=== PATIENT | female | born 1975 | race Caucasian/White ===

== ENCOUNTER 2016-11-18 02:19 | Inpatient (IN) | payer MEDICAID, OTHER ==
[~2016-11-18] VITALS: Ht 154.9 cm; Wt 96.6 kg
[~2016-11-18 02:19] MED LIST: FLUO10CA65 PO
--- NOTE | 2016-11-18 02:25 | NUR ---
Patient to ER bed 8 to gown for evaluation. Side rails up. Report given to CLARA RUSHING.
--- NOTE | 2016-11-18 02:28 | NUR ---
Pt brought in by in stable condition. Pt c/o abd pain 10/ that radiated to her back bilaterally. Pt actively vomiting in room. Pt stated that she has been having diarrhea x3 days. Pt stated that she took 1 mg of Ativan at 2200 but has been ineffective for pain and anxiety. Pt admitted to drinking 2 beers earlier in the evening. -sob -chest pain. no acute distress noted at this time, will continue to monitor
[2016-11-18 02:29] VITALS: BP 151/94; PULSE 100; RESP 18; TEMP 99.8; O2SAT 98
[2016-11-18] MEDS ORDERED: NACL 0.9% 1,000 ML IV ONE ×2 (02:33→08:15)
--- NOTE | 2016-11-18 02:43 | NUR ---
ER at bedside examining patient.
[2016-11-18] MEDS ORDERED: MAG HYDROX/AL HYDROX/SIMETH 30 ML, BELLADONNA ALKALOIDS/PHENOBARB 10 ML, LIDOCAINE VISC... PO ONE ×3 (02:45)
[2016-11-18] MEDS ORDERED: ONDANSETRON HCL 4 MG/2 ML VIAL IVP ONE (02:45)
[2016-11-18] MEDS ORDERED: KETOROLAC TROMETHAMINE 30 MG VIAL IVP ONE ×2 (02:45→04:00)
[2016-11-18 03:21] LABS: BASOPHILS % (AUTO) 0.5 % (0.0-2.0); EOSINOPHILS # (AUTO) 0.1 K/uL (0.0-0.4); EOSINOPHILS % (AUTO) 1.8 % (0.0-4.0); HEMATOCRIT 35.5 % (36-48); HEMOGLOBIN 11.8 g/dL (12.0-16.0); LYMPHOCYTES # (AUTO) 1.6 K/uL (1.0-5.5); LYMPHOCYTES % (AUTO) 20.2 % (20.5-51.5); MEAN CORPUSCULAR HEMOGLOBIN 31 pg (27-31); MEAN CORPUSCULAR HGB CONC 33 % (32-36); MEAN CORPUSCULAR VOLUME 95 fL (79.0-98.0); MONOCYTES # (AUTO) 0.4 K/uL (0.0-1.0); MONOCYTES % (AUTO) 5.3 % (1.7-9.3); NEUTROPHILS # (AUTO) 5.7 K/uL (1.8-7.7); NEUTROPHILS % (AUTO) 72.2 % (40.0-70.0); PLATELET COUNT (AUTO) 284 K/uL (130-430); RED BLOOD CELL COUNT(AUTO) 3.75 MIL/uL (4.2-6.2); RED CELL DISTRIBUTION WIDTH 14.7 % (9.0-15.0); WHITE BLOOD COUNT (AUTO) 7.8 K/uL (4.8-10.8)
[2016-11-18 03:29] LABS: BILIRUBIN,URINE 1+ (NEGATIVE); BLOOD, URINE NEGATIVE (NEGATIVE); CLARITY/URINE CLEAR (CLEAR); COLOR,URINE YELLOW (YELLOW); GLUCOSE,URINE NEGATIVE (NEGATIVE); KETONES,URINE TRACE (NEGATIVE); LEUKOCYTE ESTERASE ,URINE NEGATIVE (NEGATIVE); NITRITE, URINE NEGATIVE (NEGATIVE); PROTEIN URINE NEGATIVE (NEGATIVE)
[2016-11-18 03:30] LABS: INR 1.1 (0.8-1.2); PROTHROMBIN TIME 12.1 SECS (9.5-12.5)
[2016-11-18 03:34] LABS: CALCIUM 9.2 mg/dL (8.4-11.0); CREATININE 0.62 mg/dL (0.55-1.30); POTASSIUM 3.5 mmol/L (3.5-5.1)
[2016-11-18 03:38] LABS: ALBUMIN 3.6 g/dL (3.4-4.8); TOTAL BILIRUBIN 2.3 mg/dL (0.0-1.0); TOTAL PROTEIN, SERUM 8.1 g/dL (6.4-8.3)
[2016-11-18] MEDS ORDERED: LACTULOSE 20 GM/30 ML UDC PO ONE (04:00)
--- NOTE | 2016-11-18 04:23 | NUR ---
Pt taken to CT via jenni
[2016-11-18] MEDS ORDERED: fentaNYL CITRATE/PF 100 MCG/2 ML AMP IVP ONE (04:30)
[2016-11-18] MEDS ORDERED: LORazepam 2 MG/ML VIAL (FOR ER USE) IVP ONE (04:30)
--- NOTE | 2016-11-18 04:34 | NUR ---
Pt back from CT. Pt tolerated procedure well.
--- NOTE | 2016-11-18 04:35 | NUR ---
Endorsed pt to CLARA Ba.
--- NOTE | 2016-11-18 04:45 | NUR ---
Pt came in for 10/10 abd pain. Pt was medicated and now is resting comfortably at a 4/10. Denies N and V. Vitals WNL. Will continue to monitor via fire prevention research engineer. No distress noted.
--- NOTE | 2016-11-18 06:35 | NUR ---
Patient will be admitted to care of Dr. Caro. Admitted to Med Surg unit. Will go to room 100A. Summary report printed. Report given to admitting RN.
[2016-11-18 06:36] VITALS: BP 118/70; PULSE 102; RESP 18; TEMP 97.4; O2SAT 96
--- NOTE | 2016-11-18 06:36 | NUR ---
Admission assessment: RECEIVE PT FROM ER VIA STAN, PT AWAKE, ALERT AND ORIENTED X4, SENIES ANY DISTRESS, BREATHING EVEN AND NON LABORED WITH ROOM AIR, CHEST CLEAR, VITAL STABLE, DIAGNOSIS OF PANCREATITIS, ABDOMEN SOFT AND TENDER TO TOUCH, IV ON LEFT AC 20 G, INFUSING NS, NO INFILTRATION, PLAN OF CARE DISCUSSED WITH PT, CALL LIGHT WITH IN REACH, WILL CONTINUE TO MONITOR.
[2016-11-18 06:46] VITALS: BP 118/70; PULSE 102; RESP 18; TEMP 97.4; O2SAT 96
--- NOTE | 2016-11-18 07:30 | NUR ---
AM ROUNDS Pt A/Ox4, Denies N/V/D or pain at this time..HL to RAC flushes well..Pt aware of NPO status and Abdominal ultrasound..Pt ambulates ad hoang with steady gait...Call light/phone w/in reach...Will cont to monitor
--- NOTE | 2016-11-18 07:44 | NUR ---
GI CONSULT Spoke with Glory regarding request for consultation with Dr. Allen ([phone]) for reason: pancreatitis
[2016-11-18] MEDS ORDERED: ONDANSETRON HCL 4 MG/2 ML VIAL IVP PRN (08:00)
[2016-11-18] MEDS ORDERED: MORPHINE 4 MG/ML INJ. SYRINGE IVP PRN (08:00)
[2016-11-18] MEDS ORDERED: MORPHINE 2 MG/ML INJ. SYRINGE IVP PRN (08:00)
[2016-11-18] MEDS: FLUoxetine HCL 10 MG CAPSULE (PROzac) PO SCH (09:00)
[2016-11-18] MEDS ORDERED: PANTOPRAZOLE SODIUM 40 MG/VIAL (PROTONIX) IVP ONE (09:15)
[2016-11-18] MEDS: D5NS 1,000 ML IV SCH ×2 (09:55→18:00)
[2016-11-18 09:56] LABS: HEMATOCRIT 32.3 % (36-48); HEMOGLOBIN 10.5 g/dL (12.0-16.0)
--- NOTE | 2016-11-18 11:00 | NUR ---
ROUNDS PT STABLE...DENIES PAIN OR DISCOMFORT AT THIS TIME..PT AWAITING GI CONSULT... AT BEDSIDE...WILL CONT TO MONITOR
[2016-11-18 12:00] VITALS: BP 134/79; PULSE 82; RESP 21; TEMP 98; O2SAT 97
--- NOTE | 2016-11-18 14:00 | NUR ---
PT AMBULATED TO MAIN LOBBY TO VISIT W/FAMILY PT STABLE
[2016-11-18 16:00] VITALS: BP 123/88; PULSE 71; RESP 19; TEMP 98.1; O2SAT 98
--- NOTE | 2016-11-18 17:02 | NUR ---
ROUNDS PT STABLE...DENIES PAIN...PT HUNGRY. AWAITING GI CONSULT... AT BEDSIDE...WILL CONT TO MONITOR
[2016-11-18 17:24] LABS: HEMATOCRIT 30.1 % (36-48)
--- NOTE | 2016-11-18 18:18 | NUR ---
DR VALENZUELA AT BEDSIDE
--- NOTE | 2016-11-18 19:50 | NUR ---
Start of shift notes Received pt.in bed, pt.alert, awake, oriented x4. Denies abdominal pain this time. No nausea and vomiting. With IVF infusing well to R AC. Made comfortable in bed.
[2016-11-18 20:00] VITALS: BP 121/76; PULSE 81; RESP 18; TEMP 98.6; O2SAT 98
[2016-11-18] MEDS: PANTOPRAZOLE SODIUM 40 MG/VIAL (PROTONIX) IVP SCH (21:33)
--- NOTE | 2016-11-18 21:45 | NUR ---
Nurse rounds Pt.denies pain. Pt.signed MRCP consent. MRCP checklist completed by pt.
[2016-11-19 00:02] VITALS: BP 146/89; PULSE 81; RESP 17; TEMP 99.2; O2SAT 98
--- NOTE | 2016-11-19 00:15 | NUR ---
Nurse rounds Pt.seemed comfortable in bed. Denies pain.
[2016-11-19 01:16] LABS: HEMATOCRIT 30.2 % (36-48); HEMOGLOBIN 9.9 g/dL (12.0-16.0)
--- NOTE | 2016-11-19 02:10 | NUR ---
Nurse rounds Pt.asleep.
[2016-11-19] MEDS: D5NS 1,000 ML IV SCH (04:00)
[2016-11-19 04:18] VITALS: BP 142/86; PULSE 82; RESP 16; TEMP 99; O2SAT 98
--- NOTE | 2016-11-19 06:15 | NUR ---
End of shift Notes Pt.asleep. Denies pain, no nausea and vomiting.
--- NOTE | 2016-11-19 08:00 | NUR ---
Patient A/Ox4. No signs of distress noted at this time. IV on right AC, #20, infused with NS 100ml/hr, intact and patent. Patient is ambulatory. Call light in place, bed at lowest position, will continue to monitor.
[2016-11-19 08:02] LABS: BASOPHILS % (AUTO) 0.5 % (0.0-2.0); EOSINOPHILS # (AUTO) 0.2 K/uL (0.0-0.4); EOSINOPHILS % (AUTO) 3.2 % (0.0-4.0); HEMATOCRIT 30.6 % (36-48); HEMOGLOBIN 10.1 g/dL (12.0-16.0); LYMPHOCYTES # (AUTO) 1.5 K/uL (1.0-5.5); MEAN CORPUSCULAR HEMOGLOBIN 32 pg (27-31); MEAN CORPUSCULAR HGB CONC 33 % (32-36); MEAN CORPUSCULAR VOLUME 96 fL (79.0-98.0); MONOCYTES # (AUTO) 0.4 K/uL (0.0-1.0); MONOCYTES % (AUTO) 5.7 % (1.7-9.3); NEUTROPHILS # (AUTO) 4.7 K/uL (1.8-7.7); NEUTROPHILS % (AUTO) 68.6 % (40.0-70.0); PLATELET COUNT (AUTO) 212 K/uL (130-430); RED CELL DISTRIBUTION WIDTH 15.1 % (9.0-15.0); WHITE BLOOD COUNT (AUTO) 6.8 K/uL (4.8-10.8)
[2016-11-19 08:15] LABS: CREATININE 0.67 mg/dL (0.55-1.30); POTASSIUM 3.3 mmol/L (3.5-5.1); TOTAL BILIRUBIN 2.6 mg/dL (0.0-1.0); TOTAL PROTEIN, SERUM 6.9 g/dL (6.4-8.3)
[2016-11-19] MEDS: FLUoxetine HCL 10 MG CAPSULE (PROzac) PO SCH (09:00)
--- NOTE | 2016-11-19 09:14 | NUR ---
Nutrition Update Misael Scale 18 noted. Pt admitted for pancreatitis. Diet: clear liquid BMI: 40.4 kg/m2 RD to follow per nutrition care standards.
[2016-11-19] MEDS: PANTOPRAZOLE SODIUM 40 MG/VIAL (PROTONIX) IVP SCH (09:54)
--- NOTE | 2016-11-19 11:03 | NUR ---
Patient is at rest, no signs of distress noted. Will continue to monitor.
[2016-11-19] MEDS ORDERED: LORazepam 2 MG/ML VIAL IVP ONE (11:30)
--- NOTE | 2016-11-19 11:40 | NUR ---
Patient to MRCP. No signs of distress noted during transport.
[2016-11-19 11:41] VITALS: BP 139/87; PULSE 77; RESP 16; TEMP 97.6; O2SAT 98
--- NOTE | 2016-11-19 13:10 | NUR ---
Patient has returned from [facility]. V/S is stable, no signs of distress noted during her return.
--- NOTE | 2016-11-19 15:38 | NUR ---
Patient is resting, no signs of distress noted.
[2016-11-19 16:06] VITALS: Ht 154.9 cm; Wt 96.6 kg
[2016-11-19 16:39] VITALS: BP 132/92; PULSE 81; RESP 16; TEMP 97.9; O2SAT 97
[2016-11-19 17:28] LABS: HEMATOCRIT 30.3 % (36-48); HEMOGLOBIN 9.9 g/dL (12.0-16.0)
--- NOTE | 2016-11-19 18:05 | NUR ---
Patient is tolerating full liquid dinner without c/o abdominal, n/v nor diarrhea.
--- NOTE | 2016-11-19 20:00 | NUR ---
PT SIGNED AND LEFT HOME.NO C/O PAIN AND NO SOB NOTED DURING D/C.V/S ARE WNL.ALL BELONGINGS WAS WITH PT WHO WAS ACCOMPANIED BY AND LADY FRIEND.DR MATTHEWS IS AWARE Addendum: 11/19/16 at 2230 by Nixon Self RN ADDITIONAL:SIGNED ELISA
== END 2016-11-19 19:45 | disposition left against medical advice (07) | DRG 282 ==
LOC: SED 02:19 → SMU 06:06
PROVIDERS: ADMIT Internal Medicine Hospice and Palliative Medicine; ATTEND Internal Medicine Hospice and Palliative Medicine
DX: K85.90 Acute pancreatitis without necrosis or infection, unspecified (principal); K92.0 Hematemesis; K76.0 Fatty (change of) liver, not elsewhere classified; K92.2 Gastrointestinal hemorrhage, unspecified; Z68.41 Body mass index [BMI] 40.0-44.9, adult; Z53.21 Procedure and treatment not carried out due to patient leaving prior to being seen by health care provider; I10 Essential (primary) hypertension; E66.9 Obesity, unspecified; Z79.899 Other long term (current) drug therapy
CPT/HCPCS: 36415; 74181; 76700-TC; 80053; 81003; 81025; 82787; 83690-TC; 84478-TC; 85018-TC; 85025; 85610-TC; 86038; 93005; 96374; 96375; 99285; C9113; G0482; J1885; J2001; J2060; J2405; J3010; J7030; J7042

== ENCOUNTER 2017-07-16 13:00 | Inpatient (IN) | payer MEDICAID ==
[~2017-07-16] VITALS: Ht 157.5 cm; Wt 86.2 kg
[2017-07-16 13:09] VITALS: BP_SYST 139
[2017-07-16 13:50] LABS: BASOPHILS # (AUTO) 0.2 K/uL (0.0-0.2); BASOPHILS % (AUTO) 1.8 % (0.0-2.0); EOSINOPHILS # (AUTO) 0.2 K/uL (0.0-0.4); EOSINOPHILS % (AUTO) 1.5 % (0.0-4.0); HEMATOCRIT 32.3 % (36-48); HEMOGLOBIN 10.6 g/dL (12.0-16.0); LYMPHOCYTES % (AUTO) 15.6 % (20.5-51.5); MEAN CORPUSCULAR HEMOGLOBIN 34 pg (27-31); MEAN CORPUSCULAR HGB CONC 33 % (32-36); MEAN CORPUSCULAR VOLUME 104 fL (79.0-98.0); MONOCYTES # (AUTO) 0.5 K/uL (0.0-1.0); MONOCYTES % (AUTO) 3.8 % (1.7-9.3); NEUTROPHILS # (AUTO) 9.6 K/uL (1.8-7.7); NEUTROPHILS % (AUTO) 77.3 % (40.0-70.0); PLATELET COUNT (AUTO) 443 K/uL (130-430); RED BLOOD CELL COUNT(AUTO) 3.12 MIL/uL (4.2-6.2); RED CELL DISTRIBUTION WIDTH 20.5 % (9.0-15.0); WHITE BLOOD COUNT (AUTO) 12.5 K/uL (4.8-10.8)
[2017-07-16] MEDS ORDERED: PRO40 PO (13:55)
[2017-07-16 14:12] LABS: CALCIUM 9.5 mg/dL (8.4-11.0); CREATININE 0.74 mg/dL (0.55-1.30); POTASSIUM 3.5 mmol/L (3.5-5.1)
[2017-07-16] MEDS ORDERED: HYDROmorphone 1 MG INJ. 1 MG/ML AMPUL IVP ONE (14:15)
[2017-07-16 14:19] LABS: ALBUMIN 2.9 g/dL (3.4-4.8); TOTAL BILIRUBIN 3.8 mg/dL (0.0-1.0)
[2017-07-16] MEDS: ONDANSETRON HCL 4 MG/2 ML VIAL IVP ONE ×2 (14:36→15:19)
[2017-07-16 14:40] LABS: INR 1.4 (0.8-1.2); PROTHROMBIN TIME 14.1 SECS (9.5-12.5)
[2017-07-16] MEDS ORDERED: NACL 0.9% 1,000 ML IV ONE (15:30)
[2017-07-16] MEDS ORDERED: MORPHINE 4 MG/ML INJ. SYRINGE IVP PRN (16:00)
[2017-07-16] MEDS ORDERED: ONDANSETRON HCL 4 MG/2 ML VIAL IVP PRN (16:00)
[2017-07-16] MEDS: FOLIC ACID 1 MG, THIAMINE HCL 100 MG, MAGNESIUM SULFATE 1 GM, MVI 10 ML in NACL 0.9% 1,... IV SCH (16:56)
[2017-07-16 20:00] VITALS: BP_SYST 115
[2017-07-16] MEDS ORDERED: MORPHINE 2 MG/ML INJ. SYRINGE IVP PRN (20:15)
[2017-07-16] MEDS ORDERED: LORazepam 2 MG/ML VIAL IVP PRN (20:45)
[2017-07-16] MEDS ORDERED: PHYTONADIONE 5 MG TABLET PO ONE (21:00)
[2017-07-16] MEDS ORDERED: TEMAZEPAM 15 MG CAPSULE PO PRN (21:45)
[2017-07-16] MEDS: FAMOTIDINE PF 20 MG/2 ML VIAL IVP SCH (23:53)
[2017-07-17 00:31] VITALS: BP_SYST 122
[2017-07-17 03:22] LABS: HEMATOCRIT 27.6 % (36-48); MEAN CORPUSCULAR HEMOGLOBIN 34 pg (27-31); MEAN CORPUSCULAR HGB CONC 33 % (32-36); MEAN CORPUSCULAR VOLUME 104 fL (79.0-98.0); PLATELET COUNT (AUTO) 356 K/uL (130-430); RED BLOOD CELL COUNT(AUTO) 2.65 MIL/uL (4.2-6.2); RED CELL DISTRIBUTION WIDTH 19.6 % (9.0-15.0); WHITE BLOOD COUNT (AUTO) 11.8 K/uL (4.8-10.8)
[2017-07-17 03:23] LABS: BASOPHILS # (AUTO) 0.1 K/uL (0.0-0.2); BASOPHILS % (AUTO) 1.1 % (0.0-2.0); EOSINOPHILS # (AUTO) 0.2 K/uL (0.0-0.4); EOSINOPHILS % (AUTO) 1.3 % (0.0-4.0); LYMPHOCYTES # (AUTO) 1.8 K/uL (1.0-5.5); MONOCYTES # (AUTO) 0.6 K/uL (0.0-1.0); MONOCYTES % (AUTO) 4.8 % (1.7-9.3); NEUTROPHILS # (AUTO) 9.1 K/uL (1.8-7.7); NEUTROPHILS % (AUTO) 77.8 % (40.0-70.0)
[2017-07-17 03:26] LABS: INR 1.5 (0.8-1.2); PROTHROMBIN TIME 15.2 SECS (9.5-12.5)
[2017-07-17 03:32] LABS: ALBUMIN 2.4 g/dL (3.4-4.8); CALCIUM 8.3 mg/dL (8.4-11.0); CREATININE 0.59 mg/dL (0.55-1.30); POTASSIUM 3.5 mmol/L (3.5-5.1); TOTAL BILIRUBIN 3.9 mg/dL (0.0-1.0)
[2017-07-17 04:33] VITALS: BP_SYST 127
[2017-07-17] MEDS ORDERED: PHYTONADIONE 10 MG/ML AMP PO ONE (07:30)
[2017-07-17 08:05] VITALS: BP_SYST 128
[2017-07-17] MEDS: FOLIC ACID 1 MG TABLET PO SCH (09:48)
[2017-07-17] MEDS: PANTOPRAZOLE SODIUM 40 MG TAB PO SCH (09:48)
[2017-07-17] MEDS: FAMOTIDINE PF 20 MG/2 ML VIAL IVP SCH ×2 (09:56→21:13)
[2017-07-17 12:17] VITALS: BP_SYST 116
[2017-07-17 16:51] VITALS: BP_SYST 122
[2017-07-17] MEDS: FOLIC ACID 1 MG, THIAMINE HCL 100 MG, MAGNESIUM SULFATE 1 GM, MVI 10 ML in NACL 0.9% 1,... IV SCH (16:51)
[2017-07-17 19:12] VITALS: BP_SYST 109
[2017-07-18 00:41] VITALS: BP_SYST 127
[2017-07-18 04:39] VITALS: BP_SYST 121
[2017-07-18 06:45] LABS: BASOPHILS % (AUTO) 0.3 % (0.0-2.0); EOSINOPHILS # (AUTO) 0.3 K/uL (0.0-0.4); EOSINOPHILS % (AUTO) 2.8 % (0.0-4.0); HEMATOCRIT 25.7 % (36-48); HEMOGLOBIN 8.5 g/dL (12.0-16.0); LYMPHOCYTES # (AUTO) 1.6 K/uL (1.0-5.5); LYMPHOCYTES % (AUTO) 13.6 % (20.5-51.5); MEAN CORPUSCULAR HEMOGLOBIN 35 pg (27-31); MEAN CORPUSCULAR HGB CONC 33 % (32-36); MEAN CORPUSCULAR VOLUME 105 fL (79.0-98.0); MONOCYTES # (AUTO) 0.7 K/uL (0.0-1.0); NEUTROPHILS # (AUTO) 9.1 K/uL (1.8-7.7); NEUTROPHILS % (AUTO) 77.3 % (40.0-70.0); PLATELET COUNT (AUTO) 356 K/uL (130-430); RED BLOOD CELL COUNT(AUTO) 2.44 MIL/uL (4.2-6.2); RED CELL DISTRIBUTION WIDTH 19.5 % (9.0-15.0); WHITE BLOOD COUNT (AUTO) 11.8 K/uL (4.8-10.8)
[2017-07-18 06:52] LABS: INR 1.4 (0.8-1.2)
[2017-07-18 07:12] LABS: ALBUMIN 2.2 g/dL (3.4-4.8); CALCIUM 8.1 mg/dL (8.4-11.0); CREATININE 0.58 mg/dL (0.55-1.30); POTASSIUM 3.3 mmol/L (3.5-5.1); TOTAL BILIRUBIN 4.6 mg/dL (0.0-1.0)
[2017-07-18] MEDS: FAMOTIDINE PF 20 MG/2 ML VIAL IVP SCH (09:00)
[2017-07-18] MEDS: PANTOPRAZOLE SODIUM 40 MG TAB PO SCH (09:11)
[2017-07-18] MEDS: FOLIC ACID 1 MG TABLET PO SCH (09:12)
[2017-07-18 09:18] VITALS: BP_SYST 137
[2017-07-18] MEDS ORDERED: POTASSIUM CHLORIDE 20 MEQ TAB.PRT.SR PO ONE (11:15)
[2017-07-18 12:38] VITALS: BP_SYST 116
[2017-07-18] MEDS ORDERED: FAMO20TA98 PO (12:39)
[2017-07-18] MEDS ORDERED: THIA100T73 PO (12:40)
[2017-07-18] MEDS ORDERED: MULT PO (12:41)
[2017-07-18] MEDS ORDERED: FOLI-43 PO (12:41)
== END 2017-07-18 13:05 | disposition home or self-care (01) | DRG 254 ==
LOC: SED 13:00 → STU 15:53 → SMU 07-17 12:08
PROVIDERS: ADMIT Internal Medicine; ATTEND Internal Medicine
DX: K43.6 Other and unspecified ventral hernia with obstruction, without gangrene (principal); D68.59 Other primary thrombophilia; K70.9 Alcoholic liver disease, unspecified; D64.9 Anemia, unspecified; N83.209 Unspecified ovarian cyst, unspecified side; E66.9 Obesity, unspecified; K21.9 Gastro-esophageal reflux disease without esophagitis; I10 Essential (primary) hypertension; B17.9 Acute viral hepatitis, unspecified; F10.20 Alcohol dependence, uncomplicated; Z79.899 Other long term (current) drug therapy; Z68.34 Body mass index [BMI] 34.0-34.9, adult
CPT/HCPCS: 36415; 71010; 74000-TC; 80053; 83605; 83690-TC; 84703; 85025; 85610-TC; 85730-TC; 87040-TC; 93005; 96361; 96374; 96375; 99285; J1170; J2270; J2405; J3411; J3430; J3475; J3490; J7030